=== PATIENT | female | born 1985 ===

== ENCOUNTER 2018-11-11 21:14 | Emergency (ER) | payer OTHER ==
[~2018-11-11] VITALS: Ht 160 cm; Wt 81.7 kg
[2018-11-11] MEDS ORDERED: KETO10 PO (22:02)
[2018-11-11] MEDS ORDERED: GABA600 PO (22:04)
== END 2018-11-11 22:10 | disposition home or self-care (01) ==
LOC: ER 21:14
DX: G43.109 Migraine with aura, not intractable, without status migrainosus (principal)
CPT/HCPCS: 36415; 96374; 96375; 99283-25; J0780; J1200; J1885; J7030